=== PATIENT | female | born 1990 | race African-American/Black ===

== ENCOUNTER 2019-03-12 10:03 | Emergency (ER) | payer SELFPAY ==
[2019-03-12] MEDS ORDERED: Lidocaine 1% w/Epinephrine 1:100K 20 ML VIAL ONE (11:08)
[2019-03-12] MEDS ORDERED: Adacel (T-DAP) 0.5 ML SYRINGE ONE (11:37)
== END 2019-03-12 11:45 | disposition home or self-care (01) ==
LOC: ERS 10:03
DX: L02.01 Cutaneous abscess of face (principal); D64.9 Anemia, unspecified; Z79.899 Other long term (current) drug therapy
CPT/HCPCS: 69000; 90471; 90715